=== PATIENT | male | born 1970 | race Caucasian/White ===

== ENCOUNTER 2018-07-18 11:43 | Inpatient (IN) | payer OTHER ==
[2018-07-18 13:28] VITALS: BMI 22.8
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
[2018-07-18] MEDS ORDERED: diazePAM 5 MG TABLET PO ONE (19:36)
[2018-07-18] MEDS ORDERED: IBUPROFEN 400 MG TABLET (FP) PO PRN (19:36)
[2018-07-18] MEDS ORDERED: MENTHOL/PHENOL 1 EACH UD MM PRN (19:36)
[2018-07-18] MEDS ORDERED: LOPERAMIDE HCL 2 MG CAPSULE PO PRN (19:36)
[2018-07-18] MEDS ORDERED: NICOTINE POLACRILEX 2 MG GUM BC PRN (19:36)
[2018-07-18] MEDS ORDERED: hydrOXYzine PAMOATE 50 MG CAPSULE (FP) PO PRN (19:36)
[2018-07-18] MEDS ORDERED: guaiFENesin/D-METHORPHAN HB 10 ML UNIT-DOSE CUPS PO PRN (19:36)
[2018-07-18] MEDS ORDERED: ACETAMINOPHEN 325 MG TABLET (FP) PO PRN (19:36)
[2018-07-18] MEDS ORDERED: MAG HYDROX/AL HYDROX/SIMETH 30 ML UNIT-DOSE CUP PO PRN (19:36)
[2018-07-18] MEDS ORDERED: MAGNESIUM HYDROX 2400MG/30ML ORAL SUSPENSION 30 ML CUP PO PRN (19:36)
[2018-07-18] MEDS ORDERED: MAGNESIUM CITRATE 300 ML BOTTLE PO PRN (19:36)
[2018-07-18] MEDS ORDERED: P-EPHED 60MG/TRIPROLIDI 2.5MG TABLET PO PRN (19:36)
[2018-07-18] MEDS: THIAMINE HCL 100 MG TABLET (FP) PO SCH (22:19)
[2018-07-18] MEDS: diazePAM 5 MG TABLET PO SCH (22:19)
[2018-07-18] MEDS: MELATONIN 5 MG TABLETS PO PRN (22:20)
[2018-07-18] MEDS: TOLNAFTATE 1% CREAM 15 GM TUBE TP SCH (22:43)
[2018-07-19 01:02] LABS: URINE APPEARANCE CLEAR; URINE BILIRUBIN NEGATIVE (<2.0 mg/dL); URINE COLOR YELLOW; URINE GLUCOSE (UA) NEGATIVE (NEGATIVE); URINE KETONE NEGATIVE (NEGATIVE); URINE LEUK ESTERASE NEGATIVE (NEGATIVE); URINE NITRITE NEGATIVE (NEGATIVE); URINE PROTEIN NEGATIVE (NEGATIVE)
[2018-07-19] MEDS: diazePAM 5 MG TABLET PO SCH ×3 (05:02→22:08)
[2018-07-19] MEDS ORDERED: METHADONE HCL 40 MG DISPERSABLE TABLET PO ONE (08:20)
[2018-07-19 10:01] LABS: HEMATOCRIT 36.8 % (35.4-49); HEMOGLOBIN 11.9 GM/dL (11.7-16.9); MCH 30.6 pg (25.7-33.7); MCHC 32.2 g/dl (32.0-35.9); MEAN CELL VOLUME 95.1 fl (80-96); MEAN PLT VOLUME 9.2 fl (7.5-11.1); PLATELET COUNT 197 K/MM3 (134-434); RBC 3.87 M/mm3 (4.00-5.60); RDW 13.1 % (11.9-15.9); WHITE BLOOD COUNT 5.8 K/mm3 (4.0-10.0)
[2018-07-19] MEDS: PRENATAL VITAMINS W/ FOLIC ACID TABLET (FP) PO SCH (10:07)
[2018-07-19] MEDS: TOLNAFTATE 1% CREAM 15 GM TUBE TP SCH ×2 (10:07→22:08)
[2018-07-19 10:12] LABS: CHLORIDE 107 mmol/L (98-107); POTASSIUM 4.2 mmol/L (3.5-5.1); SODIUM 144 mmol/L (136-145)
[2018-07-19 10:22] LABS: ALBUMIN 2.8 g/dl (3.4-5.0); ALK PHOS 59 U/L (45-117); ANION GAP 9 MMOL/L (8-16); BILIRUBIN,TOTAL 0.2 mg/dL (0.2-1.0); BLOOD UREA NITROGEN 17 mg/dL (7-18); CALCIUM 8.3 mg/dL (8.5-10.1); CO2 28 mmol/L (21-32); CREATININE 0.7 mg/dL (0.7-1.3); GLUCOSE,RANDOM 107 mg/dL (74-106); SGOT/AST 22 U/L (15-37); SGPT/ALT 25 U/L (12-78); TOT PROT 6.2 g/dl (6.4-8.2)
--- NOTE | 2018-07-19 11:45 | EKG ---
Test Reason : Blood Pressure : / mmHG Vent. Rate : 055 BPM Atrial Rate : 055 BPM P-R Int : 146 ms QRS Dur : 078 ms QT Int : 432 ms P-R-T Axes : 029 060 044 degrees QTc Int : 413 ms SINUS BRADYCARDIA OTHERWISE NORMAL ECG NO PREVIOUS ECGS AVAILABLE Confirmed by RUCHI GARCIA, DOLORES ([id number]) on 07/19/2018 11:45:10 AM Referred By: Confirmed By:DOLORES HOPPER MD
--- NOTE | 2018-07-19 11:58 | PN ---
S CIWA - CIWA Score Nausea/Vomitin-No Nausea/No Vomiting Muscle Tremors: 4-Moderate,w/Arms Extend Anxiety: 4-Mod. Anxious/Guarded Agitation: 4-Moderately Restless Paroxysmal Sweats: 1-Minimal Palms Moist Orientation: 0-Oriented Tacttile Disturbances: 0-None Auditory Disturbances: 0-None Visual Disturbances: 0-None Headache: 0-None Present CIWA-Ar Total Score: 13 BHS Progress Note (SOAP) Subjective: ANXIETY,SWEATS,FATIGUE. Objective: 07/19/18 11:58 Vital Signs 07/19/18 07/19/18 07/19/18 06:00 06:32 10:42 Temperature 97.8 F 97.4 F L Pulse Rate 81 56 L Respiratory 18 18 16 Rate Blood Pressure 112/72 99/62 Laboratory Tests 07/18/18 07/18/18 07/19/18 17:13 23:22 07:00 WBC 5.8 RBC 3.87 L Hgb 11.9 Hct 36.8 MCV 95.1 MCH 30.6 MCHC 32.2 RDW 13.1 Plt Count 197 MPV 9.2 Sodium Potassium Chloride Carbon Dioxide Anion Gap BUN Creatinine Creat Clearance w eGFR POC Glucometer 132 Random Glucose Calcium Total Bilirubin AST ALT Alkaline Phosphatase Total Protein Albumin Urine Color Yellow Urine Appearance Clear Urine pH 5.0 Ur Specific [place] 1.021 Urine Protein Negative Urine Glucose (UA) Negative Urine Ketones Negative Urine Blood Negative Urine Nitrite Negative Urine Bilirubin Negative Urine Urobilinogen 2.0 Ur Leukocyte Esterase Negative 07/19/18 07:00 WBC RBC Hgb Hct MCV MCH MCHC RDW Plt Count MPV Sodium 144 Potassium 4.2 Chloride 107 Carbon Dioxide 28 Anion Gap 9 BUN 17 Creatinine 0.7 Creat Clearance w eGFR > 60 POC Glucometer Random Glucose 107 H Calcium 8.3 L Total Bilirubin 0.2 AST 22 ALT 25 Alkaline Phosphatase 59 Total Protein 6.2 L Albumin 2.8 L Urine Color Urine Appearance Urine pH Ur Specific [place] Urine Protein Urine Glucose (UA) Urine Ketones Urine Blood Urine Nitrite Urine Bilirubin Urine Urobilinogen Ur Leukocyte Esterase Assessment: 07/19/18 11:58 WITHDRAWAL SX Plan: CONTINUE DETOX
--- NOTE | 2018-07-19 15:05 | CONSULT ---
[facility] Psychiatric Consult - Data Date of interview: 07/19/18 Admission source: [facility] Identifying data: First admission to [facility] for this 48 y/o male self-referred for detoxification treatment (opioid,cocaine,xanax dependence) .Admitted to [address] [place] [address].Patient is single,a father of seven,domiciled and supported on Public Assistance. Substance Abuse History: Confirmed by patient in this interview.Details in current [facility] report : Smoking history: Current every day smoker. Have you smoked in the past 12 months: Yes. Aproximately how many cigarettes per day: 3. Hx Chewing Tobacco Use: No. Initiated information on smoking cessation: Yes. 'Breaking Loose' booklet given: 07/18/18. - Substance & Tx. History. Hx Alcohol Use: No. Hx Substance Use: Yes. Substance Use Type: Cocaine, Prescribed (Methadone ), Tranquilizers (klonopin and Xanax - non-prescribed). Hx Substance Use Treatment: Yes (detox, currently in a MMTP). - Substances Abused. Alprazolam (Xanax). Route: Oral. Frequency: Daily. Amount used: 6 -8mg. Age of first use: 46. Date of Last Use: 07/18/18. Cocaine. Route: Injection. Frequency: Daily. Amount used: $200. Age of first use: 12. Date of Last Use: 07/17/18 Medical History: Hepatitis C. Psychiatric History: Patient denies history of psychiatric hospitalizations.Diagnosed with Bipolar Disorder.Prescribed lithium and another unnamed medication.Mr Metzger declares that he sees a psychiatrist at the [facility] outpatient program in [facility].Maintained on methadone 200 mg/ day.Patient admits to a suicide attempt via self-mutilation. Physical/Sexual Abuse/Trauma History: Not discussed in this interview.Patient declines. Additional Comment: Urine Drug Screen Results: SHA-Cocaine, BZO-Benzodiazepines , MTD-Methadone.Noted. Mental Status Exam - Mental Status Exam Alert and Oriented to: Place, Person Cognitive Function: Impaired (patient is drowsy,sedated) Patient Appearance: Unkempt, Disheveled (tattoos : teardrop at the corner of left eye,forearms,arms,left side of neck) Mood: Withdrawn, Irritable Affect: Mood Congruent, Constricted Patient Behavior: Sedated, Fatigued, Cooperative (marginally cooperative) Speech Pattern: Delayed, Slurred Voice Loudness: Moderately Soft/Quiet Thought Process: Disorganized Thought Disorder: Not Present Hallucinations: Denies Suicidal Ideation: Denies Homicidal Ideation: Denies Insight/Judgement: Poor Sleep: Well Appetite: Good Muscle strength/Tone: Normal Gait/Station: Other (unsteady gait due to sedation) Psychiatric Findings - Problem List (Ruth 1, 2,3) (1) Opioid dependence on agonist therapy Current Visit: Yes Status: Acute (2) Sedative, hypnotic or anxiolytic dependence with withdrawal, uncomplicated Current Visit: Yes Status: Acute (3) Cocaine dependence, uncomplicated Current Visit: Yes Status: Acute (4) Nicotine dependence Current Visit: Yes Status: Acute Qualifiers: Nicotine product type: cigarettes Substance use status: in withdrawal Qualified Code(s): F17.213 - Nicotine dependence, cigarettes, with withdrawal (5) Substance induced mood disorder Current Visit: Yes Status: Acute (6) Bipolar disorder Current Visit: No Status: Suspected Comment: Patient is prescribed lithium as per records.Not adherent to medication. (7) Non-compliance with treatment Current Visit: Yes Status: Chronic - Initial Treatment Plan Initial Treatment Plan: Psychoeducation.Detoxification in progress.Falls precautions.[place] level : requested.Observation.
--- NOTE | 2018-07-19 16:42 | PN ---
[facility] Progress Note Note: Vital Signs Temperature 97.6 F 07/19/18 13:27 Pulse Rate 69 07/19/18 13:27 Respiratory Rate 18 07/19/18 13:27 Blood Pressure 111/69 07/19/18 13:27 O2 Sat by Pulse Oximetry (%) Laboratory Last Values WBC 5.8 K/mm3 (4.0-10.0) 07/19/18 07:00 RBC 3.87 M/mm3 (4.00-5.60) L 07/19/18 07:00 Hgb 11.9 GM/dL (11.7-16.9) 07/19/18 07:00 Hct 36.8 % (35.4-49) 07/19/18 07:00 MCV 95.1 fl (80-96) 07/19/18 07:00 MCH 30.6 pg (25.7-33.7) 07/19/18 07:00 MCHC 32.2 g/dl (32.0-35.9) 07/19/18 07:00 RDW 13.1 % (11.9-15.9) 07/19/18 07:00 Plt Count 197 K/MM3 (134-434) 07/19/18 07:00 MPV 9.2 fl (7.5-11.1) 07/19/18 07:00 Sodium 144 mmol/L (136-145) 07/19/18 07:00 Potassium 4.2 mmol/L (3.5-5.1) 07/19/18 07:00 Chloride 107 mmol/L (98-107) 07/19/18 07:00 Carbon Dioxide 28 mmol/L (21-32) 07/19/18 07:00 Anion Gap 9 MMOL/L (8-16) 07/19/18 07:00 BUN 17 mg/dL (7-18) 07/19/18 07:00 Creatinine 0.7 mg/dL (0.7-1.3) 07/19/18 07:00 Creat Clearance w eGFR > 60 (>60) 07/19/18 07:00 POC Glucometer 255 UNITS (80-120) 07/19/18 16:16 Random Glucose 107 mg/dL (74-106) H 07/19/18 07:00 Calcium 8.3 mg/dL (8.5-10.1) L 07/19/18 07:00 Total Bilirubin 0.2 mg/dL (0.2-1.0) 07/19/18 07:00 AST 22 U/L (15-37) 07/19/18 07:00 ALT 25 U/L (12-78) 07/19/18 07:00 Alkaline Phosphatase 59 U/L (45-117) 07/19/18 07:00 Total Protein 6.2 g/dl (6.4-8.2) L 07/19/18 07:00 Albumin 2.8 g/dl (3.4-5.0) L 07/19/18 07:00 Urine Color Yellow 07/18/18 23:22 Urine Appearance Clear 07/18/18 23:22 Urine pH 5.0 (5.0-8.0) 07/18/18 23:22 Ur Specific [place] 1.021 (1.001-1.035) 07/18/18 23:22 Urine Protein Negative (NEGATIVE) 07/18/18 23:22 Urine Glucose (UA) Negative (NEGATIVE) 07/18/18 23:22 Urine Ketones Negative (NEGATIVE) 07/18/18 23:22 Urine Blood Negative (NEGATIVE) 07/18/18 23:22 Urine Nitrite Negative (NEGATIVE) 07/18/18 23:22 Urine Bilirubin Negative (<2.0 mg/dL) 07/18/18 23:22 Urine Urobilinogen 2.0 mg/dL (0.2-1.0) 07/18/18 23:22 Ur Leukocyte Esterase Negative (NEGATIVE) 07/18/18 23:22 RPR Titer Nonreactive (NONREACTIVE) 07/19/18 07:00 HIV 1&2 Antibody Screen Negative 07/19/18 07:00 HIV P24 Antigen Negative 07/19/18 07:00 current BGM 255 asymptomatic d/c ensure to glucerna NCS diet BGM BID increase PO fluids continue to monitor
[2018-07-19] MEDS: THIAMINE HCL 100 MG TABLET (FP) PO SCH (22:08)
[2018-07-19] MEDS: MELATONIN 5 MG TABLETS PO PRN (22:09)
[2018-07-20] MEDS: diazePAM 5 MG TABLET PO PRN (06:10)
[2018-07-20] MEDS: METHADONE HCL 40 MG DISPERSABLE TABLET PO SCH (06:10)
[2018-07-20] MEDS: PRENATAL VITAMINS W/ FOLIC ACID TABLET (FP) PO SCH (10:03)
[2018-07-20] MEDS: TOLNAFTATE 1% CREAM 15 GM TUBE TP SCH ×2 (10:03→22:12)
[2018-07-20] MEDS: diazePAM 5 MG TABLET PO SCH ×2 (10:03→22:13)
--- NOTE | 2018-07-20 11:25 | PN ---
[facility] CIWA - CIWA Score Nausea/Vomitin-Mild Nausea/No Vomiting Muscle Tremors: 1-None Visible, but [place] Anxiety: 1-Mildly Anxious Agitation: 0-Normal Activity Paroxysmal Sweats: No Perspiration Orientation: 0-Oriented Tacttile Disturbances: 0-None Auditory Disturbances: 0-None Visual Disturbances: 0-None Headache: 1-Very Mild CIWA-Ar Total Score: 4 BHS COWS - Scale Resting Pulse: 0= [place] 80 or Below Sweatin= No chills or Flushing Restless Observation: 0= Sits Still Pupil Size: 0= Normal to Room Light Bone or Joint Aches: 1= Mild Discomfort Runny Nose/ Eye Tearin= None GI Upset > 30mins: 1= Stomach Cramp Tremor Observation of Outstretched Hands: 0= None Yawning Observation: 1= 1-2x During Session Anxiety or Irritability: 1=Feels Anxious/Irritable Goose Flesh Skin: 0=Smooth Skin COWS Score: 4 S Progress Note (SOAP) Subjective: Mild anxiety and stomach cramps. Denies CP, SOB and Dizziness. Objective: 07/20/18 11:24 Vital Signs Temperature 97.6 F 07/20/18 09:38 Pulse Rate 61 07/20/18 09:38 Respiratory Rate 18 07/20/18 09:38 Blood Pressure 110/64 07/20/18 09:38 O2 Sat by Pulse Oximetry (%) Laboratory Tests 07/18/18 07/18/18 07/19/18 17:13 23:22 07:00 WBC RBC Hgb Hct MCV MCH MCHC RDW Plt Count MPV Sodium Potassium Chloride Carbon Dioxide Anion Gap BUN Creatinine Creat Clearance w eGFR POC Glucometer 132 Random Glucose Calcium Total Bilirubin AST ALT Alkaline Phosphatase Total Protein Albumin Urine Color Yellow Urine Appearance Clear Urine pH 5.0 Ur Specific [place] 1.021 Urine Protein Negative Urine Glucose (UA) Negative Urine Ketones Negative Urine Blood Negative Urine Nitrite Negative Urine Bilirubin Negative Urine Urobilinogen 2.0 Ur Leukocyte Esterase Negative RPR Titer HIV 1&2 Antibody Screen Negative HIV P24 Antigen Negative 07/19/18 07/19/18 07/19/18 07:00 07:00 07:00 WBC 5.8 RBC 3.87 L Hgb 11.9 Hct 36.8 MCV 95.1 MCH 30.6 MCHC 32.2 RDW 13.1 Plt Count 197 MPV 9.2 Sodium 144 Potassium 4.2 Chloride 107 Carbon Dioxide 28 Anion Gap 9 BUN 17 Creatinine 0.7 Creat Clearance w eGFR > 60 POC Glucometer Random Glucose 107 H Calcium 8.3 L Total Bilirubin 0.2 AST 22 ALT 25 Alkaline Phosphatase 59 Total Protein 6.2 L Albumin 2.8 L Urine Color Urine Appearance Urine pH Ur Specific [place] Urine Protein Urine Glucose (UA) Urine Ketones Urine Blood Urine Nitrite Urine Bilirubin Urine Urobilinogen Ur Leukocyte Esterase RPR Titer Nonreactive HIV 1&2 Antibody Screen HIV P24 Antigen 07/19/18 07/20/18 16:16 06:09 WBC RBC Hgb Hct MCV MCH MCHC RDW Plt Count MPV Sodium Potassium Chloride Carbon Dioxide Anion Gap BUN Creatinine Creat Clearance w eGFR POC Glucometer 255 100 Random Glucose Calcium Total Bilirubin AST ALT Alkaline Phosphatase Total Protein Albumin Urine Color Urine Appearance Urine pH Ur Specific [place] Urine Protein Urine Glucose (UA) Urine Ketones Urine Blood Urine Nitrite Urine Bilirubin Urine Urobilinogen Ur Leukocyte Esterase RPR Titer HIV 1&2 Antibody Screen HIV P24 Antigen Assessment: 07/20/18 11:24 Withdrawal Syndrome Plan: Continue current detox as per protocol
[2018-07-20] MEDS: THIAMINE HCL 100 MG TABLET (FP) PO SCH (22:12)
[2018-07-20] MEDS: MELATONIN 5 MG TABLETS PO PRN (22:13)
[2018-07-21] MEDS: METHADONE HCL 40 MG DISPERSABLE TABLET PO SCH (05:50)
[2018-07-21] MEDS: diazePAM 5 MG TABLET PO PRN (05:51)
[2018-07-21] MEDS: PRENATAL VITAMINS W/ FOLIC ACID TABLET (FP) PO SCH (10:24)
[2018-07-21] MEDS: TOLNAFTATE 1% CREAM 15 GM TUBE TP SCH ×2 (10:24→22:48)
[2018-07-21] MEDS: diazePAM 5 MG TABLET PO SCH ×2 (10:24→22:48)
--- NOTE | 2018-07-21 10:47 | PN ---
[facility] CIWA - CIWA Score Nausea/Vomitin-No Nausea/No Vomiting Muscle Tremors: None Anxiety: 0-No Anxiety, at Ease Agitation: 1-Slight > Activity Paroxysmal Sweats: No Perspiration Orientation: 0-Oriented Tacttile Disturbances: 0-None Auditory Disturbances: 0-None Visual Disturbances: 0-None Headache: 0-None Present CIWA-Ar Total Score: 1 BHS Progress Note (SOAP) Subjective: PATIENT PRESENTS PACING IN HALLWAY. STATES HE HAS MILD BODY ACHES, CHRONIC DUE TO BACK PAIN. Objective: 07/21/18 10:43 Vital Signs Temperature 97.6 F 07/21/18 09:46 Pulse Rate 77 07/21/18 09:46 Respiratory Rate 18 07/21/18 09:46 Blood Pressure 98/61 07/21/18 09:46 O2 Sat by Pulse Oximetry (%) Laboratory Tests 07/18/18 07/18/18 07/19/18 17:13 23:22 07:00 WBC RBC Hgb Hct MCV MCH MCHC RDW Plt Count MPV Sodium Potassium Chloride Carbon Dioxide Anion Gap BUN Creatinine Creat Clearance w eGFR POC Glucometer 132 Random Glucose Calcium Total Bilirubin AST ALT Alkaline Phosphatase Total Protein Albumin Urine Color Yellow Urine Appearance Clear Urine pH 5.0 Ur Specific [place] 1.021 Urine Protein Negative Urine Glucose (UA) Negative Urine Ketones Negative Urine Blood Negative Urine Nitrite Negative Urine Bilirubin Negative Urine Urobilinogen 2.0 Ur Leukocyte Esterase Negative [place] RPR Titer HIV 1&2 Antibody Screen Negative HIV P24 Antigen Negative 07/19/18 07/19/18 07/19/18 07:00 07:00 07:00 WBC 5.8 RBC 3.87 L Hgb 11.9 Hct 36.8 MCV 95.1 MCH 30.6 MCHC 32.2 RDW 13.1 Plt Count 197 MPV 9.2 Sodium 144 Potassium 4.2 Chloride 107 Carbon Dioxide 28 Anion Gap 9 BUN 17 Creatinine 0.7 Creat Clearance w eGFR > 60 POC Glucometer Random Glucose 107 H Calcium 8.3 L Total Bilirubin 0.2 AST 22 ALT 25 Alkaline Phosphatase 59 Total Protein 6.2 L Albumin 2.8 L Urine Color Urine Appearance Urine pH Ur Specific [place] Urine Protein Urine Glucose (UA) Urine Ketones Urine Blood Urine Nitrite Urine Bilirubin Urine Urobilinogen Ur Leukocyte Esterase [place] RPR Titer Nonreactive HIV 1&2 Antibody Screen HIV P24 Antigen 07/19/18 07/20/18 07/20/18 16:16 06:09 07:00 WBC RBC Hgb Hct MCV MCH MCHC RDW Plt Count MPV Sodium Potassium Chloride Carbon Dioxide Anion Gap BUN Creatinine Creat Clearance w eGFR POC Glucometer 255 100 Random Glucose Calcium Total Bilirubin AST ALT Alkaline Phosphatase Total Protein Albumin Urine Color Urine Appearance Urine pH Ur Specific [place] Urine Protein Urine Glucose (UA) Urine Ketones Urine Blood Urine Nitrite Urine Bilirubin Urine Urobilinogen Ur Leukocyte Esterase [place] 0 L RPR Titer HIV 1&2 Antibody Screen HIV P24 Antigen 07/21/18 05:49 WBC RBC Hgb Hct MCV MCH MCHC RDW Plt Count MPV Sodium Potassium Chloride Carbon Dioxide Anion Gap BUN Creatinine Creat Clearance w eGFR POC Glucometer 128 Random Glucose Calcium Total Bilirubin AST ALT Alkaline Phosphatase Total Protein Albumin Urine Color Urine Appearance Urine pH Ur Specific [place] Urine Protein Urine Glucose (UA) Urine Ketones Urine Blood Urine Nitrite Urine Bilirubin Urine Urobilinogen Ur Leukocyte Esterase [place] RPR Titer HIV 1&2 Antibody Screen HIV P24 Antigen PE: ALERT AND ORIENTED SKIN WARM AND DRY CAR S1S2 RESP CTA BL EXT NO EDEMA Assessment: 07/21/18 10:46 WITHDRAWAL SYNDROME Plan: CONTINUE CURRENT DETOX PER PROTOCOL ENCOURAGE ORAL HYDRATION CONTINUE TO MONITOR CLINICALLY
[2018-07-21] MEDS: THIAMINE HCL 100 MG TABLET (FP) PO SCH (22:47)
[2018-07-22] MEDS: METHADONE HCL 40 MG DISPERSABLE TABLET PO SCH (05:03)
[2018-07-22 05:58] VITALS: BP 103/64; PULSE 80; TEMP 97.6
[2018-07-22] MEDS ORDERED: diazePAM 5 MG TABLET PO SCH (10:00)
== END 2018-07-22 06:33 | disposition home or self-care (01) | DRG 773 ==
LOC: YASAS 11:43 → Y3N 19:20
PROC: HZ2ZZZZ Detoxification Services for Substance Abuse Treatment (ICD-10-PCS; principal; 2018-07-18)
DX: F13.230 Sedative, hypnotic or anxiolytic dependence with withdrawal, uncomplicated (principal); F11.20 Opioid dependence, uncomplicated; F14.20 Cocaine dependence, uncomplicated; F17.213 Nicotine dependence, cigarettes, with withdrawal; F19.24 Other psychoactive substance dependence with psychoactive substance-induced mood disorder; F31.9 Bipolar disorder, unspecified; E11.9 Type 2 diabetes mellitus without complications; B18.2 Chronic viral hepatitis C; B35.3 Tinea pedis; E86.0 Dehydration; Z87.828 Personal history of other (healed) physical injury and trauma; Z91.19 Patient's noncompliance with other medical treatment and regimen; Z91.5 Personal history of self-harm
CPT/HCPCS: 36415; 80053; 80178; 81003; 82962; 85027; 86593; 87389; 93005; 93010

== ENCOUNTER 2024-06-12 16:46 | Inpatient (IN) | payer OTHER ==
[2024-06-12 20:16] VITALS: BMI 20.4
[2024-06-12] MEDS ORDERED: NICOTINE POLACRILEX 2 MG GUM BUC PRN (22:37)
[2024-06-12] MEDS ORDERED: IBUPROFEN 400 MG TABLET (FP) PO PRN (22:37)
[2024-06-12] MEDS ORDERED: MAGNESIUM HYDROX 2400MG/30ML ORAL SUSPENSION 30 ML CUP PO PRN (22:37)
[2024-06-12] MEDS ORDERED: BISMUTH SUBSALICYLATE 524 MG/30 ML PO PRN (22:37)
[2024-06-12] MEDS ORDERED: BENZOCAINE/MENTHOL (CHLORASEPTIC ) LOZENGE MM PRN (22:37)
[2024-06-12] MEDS ORDERED: POLYETHYLENE GLYCOL (HEALTHYLAX) 3350 17 GM PACKET PO PRN (22:37)
[2024-06-12] MEDS ORDERED: ACETAMINOPHEN 325 MG TABLET (FP) PO PRN (22:37)
[2024-06-12] MEDS ORDERED: NALOXONE HCL 0.4 MG/ML VIAL IM PRN (22:37)
[2024-06-12] MEDS ORDERED: guaiFENesin 600 MG TABLET.ER (FP) PO PRN (22:37)
[2024-06-12] MEDS ORDERED: LOPERAMIDE HCL 2 MG CAPSULE PO PRN (22:37)
[2024-06-12] MEDS ORDERED: NALOXONE (NARCAN) HCL 4 MG/0.1 ML SPRAY NS PRN (22:37)
[2024-06-12] MEDS ORDERED: BENZONATATE 200 MG CAPSULE PO PRN (22:37)
[2024-06-12] MEDS ORDERED: methaDONE HCL 10 MG TABLET (FOR DETOX USE ONLY) ONE (23:30)
[2024-06-12] MEDS ORDERED: METHOCARBAMOL 500 MG TABLET ONE (23:30)
[2024-06-12] MEDS: methaDONE HCL 10 MG TABLET PO ONE (23:36)
[2024-06-12] MEDS: METHOCARBAMOL 500 MG TABLET PO PRN (23:36)
[2024-06-13] MEDS: ONDANSETRON *ODT* 4 MG TABLET SL PRN (01:19)
[2024-06-13] MEDS: hydrOXYzine PAMOATE 25 MG CAPSULE (FP) PO PRN (01:19)
[2024-06-13] MEDS ORDERED: methaDONE HCL 10 MG TABLET PO SCH (09:15)
[2024-06-13] MEDS: PRENATAL VITAMINS W/ FOLIC ACID TABLET (FP) PO SCH (09:52)
[2024-06-13] MEDS: NICOTINE 14 MG/24 HOURS TOPICAL PATCH TD SCH (09:52)
[2024-06-13] MEDS ORDERED: diazePAM 5 MG TABLET PO PRN (10:15)
[2024-06-13] MEDS: diazePAM 5 MG TABLET PO SCH (10:44)
[2024-06-13 15:51] LABS: HEMATOCRIT 43.1 % (35.4-49); MCH 31.2 pg (25.7-33.7); MCHC 32.4 g/dl (32.0-35.9); MEAN CELL VOLUME 96.2 fl (80-96); MEAN PLT VOLUME 9.1 fl (7.5-11.1); PLATELET COUNT 236 10^3/uL (134-434); RBC 4.48 M/mm3 (4.00-5.60); RDW 13.7 % (11.9-15.9); WHITE BLOOD COUNT 5.8 K/mm3 (4.0-10.0)
[2024-06-13 17:11] LABS: CHLORIDE 103 mmol/L (98-107); SODIUM 139 mmol/L (136-145)
[2024-06-13 17:13] LABS: CALCIUM 8.8 mg/dL (8.5-10.1)
[2024-06-13 17:14] LABS: ALBUMIN 3.3 g/dl (3.4-5.0); ANION GAP 11 mmol/L (4-13); BLOOD UREA NITROGEN 15.9 mg/dL (7-18); CO2 25 mmol/L (21-32); GLUCOSE,RANDOM 127 mg/dL (74-106)
[2024-06-13 17:17] LABS: CREATININE 0.8 mg/dL (0.55-1.3); SGOT/AST 27 U/L (15-37); SGPT/ALT 18 U/L (13-61)
[2024-06-13 17:18] LABS: TOT PROT 7.5 g/dl (6.4-8.2)
[2024-06-13 17:19] LABS: BILIRUBIN,TOTAL 0.4 mg/dL (0.2-1)
[2024-06-13 17:20] LABS: ALK PHOS 72 U/L (45-117)
[2024-06-13] MEDS ORDERED: MELATONIN 5 MG TABLETS PO SCH (22:00)
[2024-06-13] MEDS: THIAMINE 100 MG TABLET PO SCH (22:15)
[2024-06-13] MEDS: MELATONIN 5 MG TABLETS PO SCH (22:15)
[2024-06-13] MEDS: risperiDONE 0.5 MG TABLET PO SCH (22:15)
[2024-06-14] MEDS: IBUPROFEN 600 MG TABLET (FP) PO PRN (15:06)
[2024-06-14] MEDS: MAG HYDROX/AL HYDROX/SIMETH 30 ML UNIT-DOSE CUP PO PRN (16:54)
[2024-06-14] MEDS: DICYCLOMINE HCL 10 MG CAPSULE PO PRN (16:54)
[2024-06-14] MEDS: TRIMETHOBENZAMIDE HCL 200MG/2ML INJ IM PRN (21:55)
[2024-06-15] MEDS: diazePAM 5 MG TABLET PO SCH (06:20)
[2024-06-16] MEDS: diazePAM 5 MG TABLET PO SCH (06:13)
[2024-06-17] MEDS: diazePAM 5 MG TABLET PO ONE (06:09)
[2024-06-17 06:51] VITALS: RESP 16; TEMP 98.6
[2024-06-17 09:46] VITALS: BP 114/77; PULSE 93
== END 2024-06-17 11:01 | disposition home or self-care (01) | DRG 773 ==
LOC: YASAS 16:46 → Y3N 23:46
PROVIDERS: ADMIT Allergy & Immunology; ATTEND Surgery
PROC: HZ2ZZZZ Detoxification Services for Substance Abuse Treatment (ICD-10-PCS; principal; 2024-06-12)
DX: F11.23 Opioid dependence with withdrawal (principal); F10.230 Alcohol dependence with withdrawal, uncomplicated; F14.20 Cocaine dependence, uncomplicated; F12.20 Cannabis dependence, uncomplicated; F17.210 Nicotine dependence, cigarettes, uncomplicated; F19.982 Other psychoactive substance use, unspecified with psychoactive substance-induced sleep disorder; F25.0 Schizoaffective disorder, bipolar type; Z56.0 Unemployment, unspecified
CPT/HCPCS: 36415; 80053; 80305; 80307; 85027; 86780; 93005; 93010; Q0162